=== PATIENT | female | born 2005 | race Caucasian/White ===

== ENCOUNTER 2024-06-17 18:08 | Observation (INO) | payer OTHER, SELFPAY ==
--- NOTE | ~2024-06-17 | CT_ITS ---
CT of the Abdomen and Pelvis: Indication: Abdominal pain Technique: 2.5 mm axial scans were obtained through the abdomen and pelvis following intravenous adm inistration of 100 cc of Omnipaque 350. Dose reduction technique was used on this scan by utilizing a utomated exposure control and iterative reconstruction technique. The dose-length product (DLP) was 4 29.26 mGy-cm. Findings: Scans through the lung bases are unremarkable. The liver, spleen, pancreas, gallbladder, adrenals and kidneys are within normal limits. No evidence of aortic aneurysm. No lymphadenopathy. No bowel obstruction or bowel wall thickening. Appendix mildly dilated to 10-11 mm. Questionable mini mal periappendiceal stranding.. Images through the pelvis were performed. Urinary bladder unremarkable. No pelvic mass seen. No ascit es. Impression: Possible early acute appendicitis, as detailed above. No abscess or free air. Correlate clinically. Reviewed, dictated and finalized at [facility]. Impression: Possible early acute appendicitis, as detailed above. No abscess or free air. C orrelate clinically.
--- NOTE | ~2024-06-17 | US_ITS ---
US pelvic complete Ordering provider: Yenni Lu PA-C History: . r/o torsion . Comparison: None. Technique: Transabdominal ultrasound of the pelvis (Doppler ultrasound interrogation techniques used as needed for this exam.) FINDINGS: CERVIX: Normal. UTERUS: Measures 8x 6.4x 4 cm in length which is within normal limits and is anteverted. No myometri al masses. ENDOMETRIUM: Normal in thickness measuring 4.4 mm. No endometrial masses, cysts or fluid. CUL DE SAC: No free fluid. RIGHT OVARY: Normal in size measuring 3x 2.3x 1.9 cm. Normal echotexture. Doppler vascular flow prese nt. LEFT OVARY: Normal in size measuring 3.1x 2x 2.4 cm. Normal echotexture. Doppler vascular flow presen t. ADNEXA: Normal. No mass. IMPRESSION: No definite evidence of torsion. Clinical evaluation and correlation advised. Reviewed, dictated and finalized at location A.
[2024-06-17 18:10] VITALS: BP 150/82; PULSE 75; RESP 16; TEMP 36.6; O2SAT 100
[2024-06-17 20:49] VITALS: BP 136/70; PULSE 82; RESP 14; TEMP 36.5; O2SAT 100
[2024-06-17 21:08] LABS: Basophils Absolute Auto 0.1 K/mm3 (0.0-0.1); Basophils Percent Auto 0.4 % (0.2-1.2); Eosinophils Percent Auto 0.2 % (0-4.4); Hematocrit 42.6 % (37.0-47.0); Hemoglobin 13.5 g/dL (12.0-15.0); Immature Granulocyte Absolute 0.12 K/mm3 (0.00-0.031); Immature Granulocyte Percent A 0.6 % (0-0.5); Lymphocytes Absolute Auto 1.23 K/mm3 (0.9-3.2); Lymphocytes Percent Auto 6.4 % (18.3-44.2); Mean Corpuscular HGB Conc 31.7 g/dl (32-36); Mean Corpuscular Hemoglobin 28.8 pg (26-34); Mean Corpuscular Volume 90.8 fl (80-100); Mean Platelet Volume 10.4 fl (7.4-10.4); Monocytes Absolute Auto 0.6 K/mm3 (0.1-0.6); Monocytes Percent Auto 3.3 % (2.6-8.5); Neutrophils Absolute Auto 17.1 K/mm3 (1.3-6.7); Neutrophils Percent Auto 89.1 % (45.5-73.1); Platelet Count Result 356 k/mm3 (150-375); Red Blood Count 4.69 M/mm3 (4.2-5.4); Red Cell Distribution Width 12.2 % (11.5-14.5); White Blood Count 19.2 K/mm3 (4.5-10.0)
[2024-06-17 21:17] LABS: Alanine Aminotransferase 21 U/L (6-35); Albumin Level 4.8 g/dL (3.5-5.1); Alkaline Phosphatase 60 U/L (38-126); Anion Gap 15 mmol/L (4-12); Aspartate Amino Transferase 26 U/L (14-36); Bilirubin,Total 0.4 mg/dL (0.2-1.3); Blood Urea Nitrogen 13 mg/dL (7-17); Calcium 9.4 mg/dL (8.4-10.2); Carbon Dioxide 24 mmol/L (22-30); Chloride 99 mmol/L (98-107); Estimated CRCL calculation 105 ml/min; Estimated Glomerular Filt Rate > 60; Glucose 123 mg/dL (65-110); Lipase 114 U/L (23-300); Sodium 138 mmol/L (137-145)
[2024-06-17 21:54] LABS: BEDSIDEPREGUCG Negative
[2024-06-17 22:00] LABS: Add Urine Microscopic? YES; Appearance Urine Cloudy (Clear); Bacteria Urine 4+ /hpf; Bilirubin Urine Negative (Negative); Blood Urine Non-Hemolyzed Trace (Negative); Color Urine Yellow (Yellow); Glucose Urine UA Negative (Negative); Ketones Urine 1+ mg/dL (Negative); Leukocyte Esterase Ur 1+ LEU/UL (Negative); Need Manual Microscopic Reviewed; Nitrate Urine Positive (Negative); Protein Urine Negative (Negative); Specific Grav Ur 1.023 (1.001-1.035); Squamous Epithelial Cell Urine Few /hpf (Few); Urobilinogen Urine 0.2 mg/dL (<2.0); WBC Urine 21-50 /hpf (0-3); pH Urine 5.5 (5.0-9.0)
[2024-06-17 22:30] VITALS: BP 139/97; PULSE 73; RESP 15; O2SAT 100
--- NOTE | 2024-06-17 23:03 | ED.ABDPAIN ---
HPI - Abdominal Pain General Chief Complaint: Abdominal Pain Stated Complaint: abd pain Time Seen by Provider: 06/17/24 22:33 History of Present Illness HPI narrative: 19-year-old female presents to the emergency department for chronic abdominal pain. Patient states she has had intermittent lower abdominal pain since October 2023. States she has acute pain approximately every 2 months that causes her to double over, vomit and pass out. She states she had an episode similar that today around 230 which prompted her to come to the ED. She did not lose consciousness today. She states she had a history of chronic abdominal pain in the past but did not present like this. She states she saw Urology, Cardiology, Gynecology and had negative transvaginal ultrasounds performed. She states she is unsure what is causing her symptoms. Reports she presents today because she needs to find out what is causing her symptoms. She denies dysuria or hematuria, urinary frequency urgency, prior abdominal surgeries, known fever. She is reporting subjective hot and cold flashes. States her LMP was approximately 2 weeks ago. Denies vaginal discharge or concern for STDs. Related Data Allergies Allergy/AdvReac Type Severity Reaction Status Date / Time No Known Allergies Allergy Verified 06/18/24 00:03 Review of Systems Review of Systems: All systems reviewed & are unremarkable except as noted in HPI and below Exam Narrative: GENERAL: Well-appearing, well-nourished, and in no acute distress. HEAD: Normocephalic, atraumatic. EYES: PERRLA and EOMI. ENT: Nares clear, no rhinorrhea or epistaxis. Mucous membranes moist. NECK: Supple. CHEST: Clear to auscultation. No respiratory distress. HEART: Regular rate and rhythm. No murmur heard. Normal peripheral pulses. ABDOMEN: normoactive bowel sounds. Abdomen soft with minimal tenderness in the suprapubic region. No rebound, guarding or rigidity. No CVA tenderness EXTREMITIES: Normal range of motion. No edema. SKIN: Warm, dry, no rash. NEURO: No focal deficits. Alert and oriented x3 Course Vital Signs Vital signs: Vital Signs Temperature 97.9 F 06/17/24 18:10 Pulse Rate 75 06/17/24 18:10 Respiratory Rate 16 06/17/24 18:10 Blood Pressure 150/82 H 06/17/24 18:10 Pulse Oximetry 100 06/17/24 18:10 Temperature 97.7 F 06/17/24 20:49 Pulse Rate 82 06/17/24 20:49 Respiratory Rate 14 06/17/24 20:49 Blood Pressure 136/70 06/17/24 20:49 Pulse Oximetry 100 06/17/24 20:49 MDM - Abdominal Pain MDM Narrative Medical decision making narrative: 19-year-old female presents emergency department for chronic abdominal pain. States her current abdominal pain is been present intermittently since October 2023. She states she has had outpatient workup performed for a different abdominal pain in the past. She states she presents today because she needs to find out what is causing her pain. vital stable. She is afebrile and nontoxic appearing. Abdomen soft with minimal tenderness in the suprapubic region. labs remarkable for leukocytosis of 19.2, no bandemia. Chemistries are unremarkable. UA with nitrite positive urinary tract infection. Urine culture is pending. is negative. Lipase is normal. pelvic ultrasound is unremarkable , no evidence of torsion. CT abdomen pelvis shows a mildly enlarged appendix measuring 10 mm in diameter with associated fat stranding concerning for acute appendicitis. EKG shows sinus rhythm with sinus arrhythmia, normal rate of 79 ppm, normal MN interval, normal QRS duration, normal QTC, no ischemic changes. is negative. Patient updated on workup. She has not required any pain medications while in the ED. On re-evaluation she does have more tenderness to the right lower quadrant with positive Rovsing sign. She was started on Zosyn given IV fluids. She is made NPO. Case discussed with general surgeon, Dr. Jhaveri, who a
--- NOTE | 2024-06-17 23:05 | ECG_ITS ---
Test Date: 2024-06-17 23:54:16 Measurements Intervals [place] Rate: 79 P: 62 OH: 149 QRS: 58 QRSD: 81 T: 38 QT: 404 QTc: 463 Interpretive Statements SINUS RHYTHM WITH SINUS ARRHYTHMIA NORMAL ELECTROCARDIOGRAM No previous ECG available for comparison Electronically Signed On 06-18-2024 07:22:35 CDT by Nate Cuevas M.D.
[2024-06-17 23:30] VITALS: BP 137/85; PULSE 70; RESP 15; O2SAT 100
[2024-06-18] VITALS (15 sets, daily range): BP systolic 130–146; BP diastolic 62–89; PULSE 61–94; RESP 14–22; TEMP 36–37.2; O2SAT 95–100; BMI 28.5
[2024-06-18 02:04] LABS: Lactic Acid Reflex 0.9 mmol/L (0.7-2.0)
[2024-06-18] MEDS: PIPERACILLN/TAZ 3.375GM/NS50ML 3.375 GM/50 ML BAG IVPB ×3 (02:13→13:45)
[2024-06-18] MEDS: SODIUM CHLORIDE 0.9% IV 1,000 ML 100 ML IV CONT ×3 (03:12→23:46)
--- NOTE | 2024-06-18 06:16 | ADMGEN ---
This patient, Ashanti Davis, was admitted to [facility] Surg Room 316-02. Patient/family oriented to hospital policies and general routines including ID bracelet, bed and alarms, visiting hours, pain management, procedures, bathroom and other care routines, personal items, smoking policy, room service/diet, and visiting hours. Information on how to activate the Rapid Response Team has been discussed. Patient/Family are encouraged to report perceived risks to care and to ask questions if they do not understand what they are told or what they should do.
[2024-06-18] MEDS: ONDANSETRON INJ 4 MG/2 ML VIAL IV PUSH ×2 (09:06→20:23)
--- NOTE | 2024-06-18 09:50 | PM.IMHP ---
H&P: HPI History of Present Illness Date/Time: 06/18/24 09:50 Chief Complaint: Abdominal pain Narrative: This is a 19-year-old woman who presented to the ED for complaints of lower abdominal pain. She reports having a sudden onset of pain last night after eating pasta. Her pain was across her entire lower abdomen. It progressively became more severe and she came into the ED patient. She also reports having multiple previous episodes of very similar pain over the past 8 months. Her pain typically is a sudden onset after eating. The pain will last a few hours and eventually resolves spontaneously. She reports an episode will happen about every 2 months. Every episode has progressively become more severe. She has associated nausea. Denies any history of diarrhea, constipation, unexplained weight loss, bloody stools, or upper abdominal pain. This episode was more severe and she decided to come in for evaluation. [place] [id number]. UA abnormal suggesting possible UTI, urine culture pending. She denies any urinary frequency, urgency, dysuria, or hematuria. Her last menstrual period was 2 weeks ago. She has annual visits with gynecology and has routine screening for STDs. Her last STD screening was about a year ago, all negative, and she has not had any new sexual partners since then. Pelvic ultrasound was normal with no evidence of torsion. CT scan of the abdomen and pelvis showed possible early acute appendicitis with a dilated appendix to 10-11 mm with questionable minimal periappendiceal stranding. She was admitted for surgical evaluation and is now seen on the medical floor. She was started on IV Zosyn and made NPO. She reports seeing Cardiology, Urology, and Gynecology for different type of abdominal pain that has been ongoing many years. This is different than what she has experienced today. She reports that her abdominal pain nearly resolved before even being seen in the ER. She did not have any pain overnight and reports having only very mild right lower quadrant throbbing discomfort this morning. She has not received any analgesics. She reports that in the past, she has not had this throbbing pain persist after her abdominal pain would resolve. Review of Systems Review of Systems: All systems reviewed & are unremarkable except as noted in HPI and below PMFSH Past Medical History Medical History No pertinent past medical history Surgical History Surgical History No pertinent past surgical history Family History Family History Father Diabetes mellitus Mother Cerebrovascular accident Social History Social History Smoking status: Never smoker Alcohol intake: current Drinks per week: 1 Substance use: current Substance use type: marijuana Do You Feel Safe in your Home?: Yes Lack of Transportation: No Lack of Food: Never True Current Housing: I Have Housing Concerned About Future Housing: No Difficulty Paying Gas/Electric Bills: No Difficulty Paying for Meds: No Currently Unemployed: No Education: High School Diploma/GED Difficulty w/ Childcare or Family Care: No Spiritual care concerns: No Meds Home Medications and Allergies Home Medications Medication Instructions Recorded Confirmed Type alprazolam 0.25 mg tablet (Xanax) 0.25 mg HS PRN Anxiety 06/18/24 06/18/24 History desogestrel 0.15 mg-ethinyl 1 tablet PO DAILY 06/18/24 06/18/24 History estradiol 0.03 mg tablet (Enskyce) ergocalciferol (vitamin D2) 1,250 1,250 mcg PO DAILY 06/18/24 06/18/24 History mcg (50,000 unit) capsule fluoxetine 20 mg capsule 20 mg PO DAILY 06/18/24 06/18/24 History lurasidone 20 mg tablet 20 mg PO DAILY 06/18/24 06/18/24 History Allergies Allergy
--- NOTE | 2024-06-18 12:03 | WPDHPUPDATE1 ---
History and Physical Update Update Date/Time: 06/18/24 12:03 History and Physical has been reviewed, including an updated exam of the patient. There are NO changes in the patient's condition. Risks, benefits, and alternatives have been discussed and questions answered. Patient agrees to proceed with procedure.
[2024-06-18] MEDS: ACETAMINOPHEN 500 MG TABLET 1000 MG PO (13:44)
[2024-06-18] MEDS: LACTATED RINGERS 1,000 ML 30 ML IV CONT ×2 (15:40→16:40)
--- NOTE | 2024-06-18 15:40 | WPDANESEPPF ---
Anes - Initial Pre Proc Eval Procedure: Operation Date: 06/18/24 16:00 Proposed Procedures p Laparoscopic Appendectomy, Possible Open - Leslie Dobson MD Date/Time: 06/18/24 15:40 Surgeon: Leslie Dobson MD Pre Op Diagnosis: Acute Appendicitis Patient Data Age: 19 Gender: F Height: 1.6 m Weight: 73 kg Last Vital Signs Temp 36.6 C 06/18/24 14:47 Pulse 68 06/18/24 14:47 Resp 16 06/18/24 14:47 BP 136/62 06/18/24 14:47 Pulse Ox 99 06/18/24 14:47 O2 Del Method Room Air 06/18/24 14:47 FiO2 21 06/18/24 08:44 Allergies Allergy/AdvReac Type Severity Reaction Status Date / Time No Known Allergies Allergy Verified 06/18/24 14:35 Home Medications Medication Instructions Recorded Confirmed Type alprazolam 0.25 mg tablet (Xanax) 0.25 mg HS PRN Anxiety 06/18/24 06/18/24 History desogestrel 0.15 mg-ethinyl 1 tablet PO DAILY 06/18/24 06/18/24 History estradiol 0.03 mg tablet (Enskyce) ergocalciferol (vitamin D2) 1,250 1,250 mcg PO DAILY 06/18/24 06/18/24 History mcg (50,000 unit) capsule fluoxetine 20 mg capsule 20 mg PO DAILY 06/18/24 06/18/24 History lurasidone 20 mg tablet 20 mg PO DAILY 06/18/24 06/18/24 History Laboratory Tests 06/17/24 06/17/24 06/17/24 20:59 21:39 21:52 WBC 19.2 H K/mm3 (4.5-10.0) RBC 4.69 M/mm3 (4.2-5.4) Hgb 13.5 g/dL (12.0-15.0) Hct 42.6 % (37.0-47.0) MCV 90.8 fl (80-100) MCH 28.8 pg (26-34) MCHC 31.7 L g/dl (32-36) RDW 12.2 % (11.5-14.5) Plt Count 356 k/mm3 (150-375) MPV 10.4 fl (7.4-10.4) Immature Gran % (Auto) 0.6 H % (0-0.5) Neut % (Auto) 89.1 H % (45.5-73.1) Lymph % (Auto) 6.4 L % (18.3-44.2) [place] % (Auto) 3.3 % (2.6-8.5) Eos % (Auto) 0.2 % (0-4.4) Baso % (Auto) 0.4 % (0.2-1.2) Lymph # (Auto) 1.23 K/mm3 (0.9-3.2) [place] # (Auto) 0.6 K/mm3 (0.1-0.6) Eos # (Auto) 0.0 K/mm3 (0-0.3) Baso # (Auto) 0.1 K/mm3 (0.0-0.1) Abs Immat Gran (auto) 0.12 H K/mm3 (0.00-0.031) Absolute Neuts (auto) 17.1 H K/mm3 (1.3-6.7) Absolute Nucleated RBC 0.000 K/mm3 (0.0-0.012) Nucleated RBC % 0.0 % (0.0-0.2) Sodium 138 mmol/L (137-145) Potassium 4.0 mmol/L (3.4-5.0) Chloride 99 mmol/L (98-107) Carbon Dioxide 24 mmol/L (22-30) Anion Gap 15 H mmol/L (4-12) BUN 13 mg/dL (7-17) Creatinine 0.70 mg/dL (0.7-1.0) Estim Creat Clear Calc 105 ml/min Estimated GFR > 60 (59 - ) Glucose 123 H mg/dL (65-110) Lactic Acid Calcium 9.4 mg/dL (8.4-10.2) Total Bilirubin 0.4 mg/dL (0.2-1.3) AST 26 U/L (14-36) ALT 21 U/L (6-35) Alkaline Phosphatase 60 U/L (38-126) Total Protein 9.0 H g/dL (6.3-8.2) Albumin 4.8 g/dL (3.5-5.1) Lipase 114 U/L (23-300) Urine Color Yellow (Yellow) Urine Appearance Cloudy H (Clear) Urine pH 5.5 (5.0-9.0) Ur Specific [place] 1.023 (1.001-1.035) Urine Protein Negative mg/dL (Negative) Urine Glucose (UA) Negative mg/dL (Negative) Urine Ketones 1+ H mg/dL (Negative) Ur Blood (Man) Non-hemolyzed trace H (Negative) Urine Nitrate Positive H (Negative) Urine Bilirubin Negative (Negative) Urine Urobilinogen 0.2 mg/dL (<2.0) Add Ur Microanalysis Reviewed Leukocyte Esterase Rfl 1+ H RAPHAEL/UL (Negative) Urine RBC 3-5 H /hpf (0-2) Urine WBC 21-50 H /hpf (0-3) Ur Squamous Epith Cells Few /hpf (Few) Urine Bacteria 4+ H /hpf Urine Casts 3-5 POC Urine HCG,
[2024-06-18] MEDS: BUPIVACAINE/EPINEPHRINE 0.5% 50 ML VIAL 30 ML INFILTRATE (16:12)
--- NOTE | 2024-06-18 16:34 | P.OP_ITS ---
Procedure Note - Detailed Date of Procedure 06/18/24 Pre-op Diagnosis Acute Appendicitis Post-op Diagnosis Same Procedure Performed laparoscopic appendectomy Surgeon Leslie Dobson MD Anesthesia General Indications 19-year-old female presenting to the emergency department complaining of lower abdominal pain. Workup, including imaging, is significant for acute appendicitis. Findings acute appendicitis no evidence of perforation Description of Procedure The patient was taken to the operating room and placed in the supine position. After adequate induction of general anesthesia, the patient was prepped and draped in the normal sterile fashion. A time-out was then done to verify the patient's identity, as well as the procedure being performed. I began by making a 5 mm incision in the infraumbilical region, through this a Veress needle was placed in the peritoneal cavity. CO2 gas was then insufflated and after adequate pneumoperitoneum was achieved the Veress needle was removed. Then placed a 5 mm Optiview trocar under direct visualization into the peritoneal cavity. I then insufflated through this trocar site and the endoscope was placed into the trocar. Under direct visualization, placed 2 further 5 mm suprapubic port as well as an additional 12 mm port in the left lower abdomen. At this point identified the cecum, I retracted the cecum both medially and superiorly allowing me to expose the appendix. The appendix was noted to be dilated and inflamed. I then was able to locate the base of the appendix with the cecum. I created a window with the [place] dissector between the appendix itself and the mesoappendix. I then transected the mesoappendix with a white vascular staple load. The Endo-NADIYA was then reloaded with a blue staple load and I transected the base of the appendix. Once the specimen was completely detached, an endo-pouch was placed into the 12 mm port site and the specimen was removed through the endo-pouch. The appendiceal specimen will be sent to patho logy for further review. I then copiously irrigated the right lower quadrant. Hemostasis was noted at both staple lines no other pathology was seen in this area. I then moved the camera to the suprapubic port to check our its port of entry. No iatrogenic injury or other pathology was noted in the upper abdomen. I then closed the 12 mm port site with a Ramiro code and 0 Vicryl suture under direct visualization. At this point, the abdomen was desufflated and all ports were removed. All port sites were closed with 4 Monocryl subcuticular suture. Dermabond was placed on all wounds. The patient tolerated the procedure well and was extubated in the operating room postop. She will be sent to the recovery room in stable condition. Estimated Blood Loss 10 Drains No Packing No Pathology Yes Complications No immediate complications Condition Stable Disposition PACU [facility] Billing Surgery - Charge Forward: Surgery Billing
[2024-06-18] MEDS: fentaNYL CITRATE INJ (*CRX) 100 MCG/2 ML VIAL 25 MCG IV PUSH ×4 (16:55→17:15)
[2024-06-18] MEDS: MIDAZOLAM HCL (*CRX) 2 MG/2 ML VIAL IV PUSH (16:55)
[2024-06-18] MEDS: HYDROcodone/acetaminophen (*CRX) 5-325 MG TABLET 1 TAB PO ×2 (17:55→21:17)
[2024-06-18] MEDS: CIPROFLOXACIN 500 MG TAB PO (20:13)
[2024-06-18] MEDS: MORPHINE SULFATE (*CRX) 2 MG/ML INJ IV PUSH ×2 (20:14→23:44)
[2024-06-19] MEDS: HYDROcodone/acetaminophen (*CRX) 5-325 MG TABLET 1 TAB PO ×3 (01:55→09:51)
[2024-06-19 04:15] VITALS: BP 138/81; PULSE 88; RESP 14; TEMP 36.8; O2SAT 98
--- NOTE | 2024-06-19 07:24 | WPDANESPN ---
Anes - Prog Note Post-Op Date/Time: 06/19/24 07:24 Cardiovascular status: normal Respiratory status: normal Airway patency: baseline Mental status: baseline Post-Op hydration status: normal Vital Signs: Last Vital Signs Temp 36.8 C 06/19/24 04:15 Pulse 88 06/19/24 04:15 Resp 14 06/19/24 04:15 BP 138/81 06/19/24 04:15 Pulse Ox 98 06/19/24 04:15 O2 Del Method Room Air 06/18/24 20:20 O2 Flow Rate 8 06/18/24 17:10 FiO2 21 06/18/24 20:20 Pain Score (VAS): 0 I/O: Intake & Output 06/18/24 06/18/24 06/19/24 15:59 23:59 07:59 Intake Total 1100 1700 550 Balance 1100 1700 550 Laboratory Tests 06/17/24 20:59 06/17/24 20:59 Microbiology 06/18/24 02:09 Blood Blood Culture - Preliminary 06/18/24 01:47 Blood Blood Culture - Preliminary 06/17/24 21:39 Unspecified Urine Culture - Preliminary Escherichia Coli Post-procedural complaints: none Patient Feedback: Patient satisfied with anesthetic care.
[2024-06-19] MEDS: CIPROFLOXACIN 500 MG TAB PO (08:09)
[2024-06-19] MEDS: MORPHINE SULFATE (*CRX) 2 MG/ML INJ IV PUSH (08:09)
[2024-06-19] MEDS: SODIUM CHLORIDE 0.9% IV 1,000 ML 100 ML IV CONT (08:09)
[2024-06-19] MEDS: FLUoxetine HCL 20 MG CAPSULE PO (08:09)
[2024-06-19 08:27] VITALS: BP 143/84; PULSE 88; RESP 17; TEMP 36.6; O2SAT 99
--- NOTE | 2024-06-19 09:12 | PM.DS ---
DS: Admitting Diagnosis Discharge Date 06/19/24 Admitting Diagnosis Acute appendicitis DS: Discharge Diagnosis Discharge Diagnosis (1) Acute appendicitis: Qualifiers: Acute appendicitis type: with localized peritonitis Appendicitis abscess presence: without abscess Appendicitis gangrene presence: without gangrene Appendicitis perforation presence: without perforation Qualified Code(s): K35.30 - Acute appendicitis with localized peritonitis, without perforation or gangrene Code(s): K35.80 - Unspecified acute appendicitis Status: Acute Assessment and Plan: status post laparoscopic appendectomy, continue routine postoperative care, home with p.o. analgesia, await path, follow-up 2 weeks (2) Urinary tract infection: Code(s): N39.0 - Urinary tract infection, site not specified Status: Acute Assessment and Plan: home with Cipro, supportive care DS: Summary Hospital Course Reason for hospitalization: acute appendicitis Hospital Course: The patient is a 19-year-old female presenting to the hospital complaining lower abdominal pain. Workup, including imaging, was significant for acute appendicitis. Incidentally, the patient was noted to also have a urinary tract infection. The patient was admitted to the Surgical Service and upon evaluation the decision was made to proceed with appendectomy. The patient was taken to the operating room and laparoscopic appendectomy was performed, please see full operative report for details of that procedure. Postoperatively, the patient did well was transferred back to the surgical floor. Postoperative day 1. , patient reports her pain is much improved and she is doing well with p.o. analgesia. She is up and ambulating without difficulty and tolerating a regular diet. She will be sent home with p.o. analgesia, Colace. She will also be sent home with Cipro for her UTI. She will follow-up with me in 2 weeks. Status at Discharge Functional status at discharge: independent ambulation Overall status at discharge: patient is progressing back to baseline Time Spent with Patient Time attestation: Total time spent providing and/or coordinating discharge services: Time spent: Less than 30 minutes Exam Const: General: cooperative, comfortable and no acute distress HENMT: Head: normal to inspection, normocephalic and atraumatic Eyes: General: appearance normal, both eyes and all related structures Resp: Auscultation: clear to auscultation bilaterally Cardio: Rate: regular rate Rhythm: regular rhythm GI: Inspection: normal to inspection, non-distended and incision GI Palp: Yes abdominal tenderness, Yes Soft to palpation, Yes Tenderness to palpation present (GI), No Guarding due to palpation present (GI) and No Rigid due to palpation DS: Data Data Completed and Pending Pending studies at discharge: Pending at discharge 06/18/24 16:37 Surgical [PTH] Routine Labs on day of discharge: Preliminary micro results at discharge 06/18/24 02:09 Blood Culture - Preliminary Blood 06/18/24 01:47 Blood Culture - Preliminary Blood 06/17/24 21:39 Urine Culture - Preliminary Unspecified Escherichia Coli Discharge Plan Discharge Attending physician on discharge: Leslie Dobson Discharging Clinician: Leslie Dobson Anticipated Discharge Date/Time: 06/19/24 12:00 Patient Disposition: Home, Self-Care Activity: may shower and as tolerated Diet: as tolerated Wound Care Instructions: incision open to air Discharge Instructions: DISCHARGE INSTRUCTION SHEET FOR HERNIA, GALLBLADDER AND APPENDIX SURGERIES DR. DOBSON PATIENT TO TAKE HOME 1. May shower in 24 hours, no soaking in bath x 2weeks. 2. Call office for: Wound increasingly painful or bleeding Vomiting Fever of greater than 101 degrees 3. If no bowel movement for three days, take 1 oz. (30 ml) Milk of Magnesia or MiraLax 17g 1 to 2 times da
== END 2024-06-19 10:20 | disposition home or self-care (01) ==
LOC: ANHED 06-18 01:34 → ANH3MEDSUR 06-18 02:12
PROVIDERS: Emergency Medicine; Admitting Provider Surgery; Emergency Provider Physician Assistant; PCP Hospitalist; Visit Provider Surgery
PROC: 0DTJ4ZZ Resection of Appendix, Percutaneous Endoscopic Approach (ICD-10-PCS; CPT 44970; principal; 2024-06-18 16:00)
DX: K35.80 Unspecified acute appendicitis (principal); N39.0 Urinary tract infection, site not specified; F12.90 Cannabis use, unspecified, uncomplicated; F41.9 Anxiety disorder, unspecified; F32.A Depression, unspecified
CPT/HCPCS: 44970; 36415; 74177; 76856; 80053; 81001; 81025; 83605; 83690; 85025; 87040; 87077; 87086; 87088; 87186; 88304; 93005; 96365; 96376; 99285; A9270; G0378; J1100; J2250; J2270; J2405; J2543; J2704; J3010; J7030; J7120; Q9967